=== PATIENT | male | born 1955 | race Caucasian/White ===

== ENCOUNTER 2024-12-04 14:17 | Emergency (ER) | payer MEDICARE ==
--- NOTE | 2024-12-04 14:20 | ERPHSYRPT ---
- History of Present Illness Time Seen by Provider: 12/04/24 14:20 Source: patient, EMS Exam Limitations: no limitations Physician History: This is an overweight 69-year-old diabetic white male patient of Dr. Chao who was transported to our facility by the paramedics secondary to cough, shortness of breath and bodyaches symptoms. His spouse had similar symptoms. His symptoms have been present for 6 days and not improving. Patient does not have chest pain at this time. He does have a history cardiac pacemaker in place. Patient has a history of hypertension, diabetes and hyperlipidemia. Timing/Duration: day(s) (6) Cough Quality/Degree: mild Possible Cause: occasional episodes Modifying Factors: Improves With: activity Associated Symptoms: cough, shortness of breath, No chest pain/soreness Allergies/Adverse Reactions: No Known Drug Allergies Allergy (Verified 12/04/24 14:18) Home Medications: Aspirin 81 mg PO BID 10/08/15 [History] Pravastatin Sodium 40 mg PO HS 10/08/15 [History] carvediloL [Coreg] 25 mg PO BID 10/08/15 [History] Lisinopril 10 mg [Zestril 10 MG] 10 mg PO BID 10/21/15 [History] Sitagliptin Phos/Metformin HCl [Janumet Xr 100-1,000 mg Tablet] 1 each PO EVENING MEAL 10/21/15 [History] Hx Tetanus, Diphtheria Vaccination/Date Given: No Hx Influenza Vaccination/Date Given: No Hx Pneumococcal Vaccination/Date Given: Yes (2014) Travel Risk - International Travel Have you traveled outside of the country in past 3 weeks: No - Emerging Infectious Disease Are you exhibiting symptoms associated with any current EIDs: Yes Symptoms: Cough: New Onset, Shortness of Breath - Review of Systems Constitutional: No Symptoms Eyes: No Symptoms Ears, Nose, & Throat: No Symptoms Respiratory: Cough, Dyspnea on Exertion (RODRIGUEZ) Cardiac: No Symptoms Abdominal/Gastrointestinal: No Symptoms Genitourinary Symptoms: No Symptoms Musculoskeletal: No Symptoms Skin: No Symptoms Neurological: No Symptoms Psychological: No Symptoms Endocrine: No Symptoms Hematologic/Lymphatic: No Symptoms Immunological/Allergic: No Symptoms All Other Systems: Reviewed and Negative - Past Medical History Pertinent Past Medical History: Yes Neurological History: No Pertinent History ENT History: No Pertinent History Cardiac History: Hypertension, Other Respiratory History: No Pertinent History Endocrine Medical History: Diabetes Type II Musculoskeletal History: Fractures GI Medical History: GERD, Hemorrhoids History: No Pertinent History Psycho-Social History: Anxiety Male Reproductive Disorders: No Pertinent History Other Medical History: cardiac pacemaker - Past Surgical History Past Surgical History: Yes Neuro Surgical History: No Pertinent History Cardiac: No Pertinent History Respiratory: No Pertinent History Gastrointestinal: Hernia Repair Genitourinary: No Pertinent History Musculoskeletal: No Pertinent History Male Surgical History: No Pertinent History Other Surgical History: HERNIA REPAIR - Social History Smoking Status: Never smoker Exposure to second hand smoke: No Drug Use: none Patient Lives Alone: No (lives with ) - Nursing Vital Signs Nursing Vital Signs: Initial Vital Signs Temperature 97.0 F 12/04/24 14:21 Pulse Rate 76 12/04/24 14:21 Respiratory Rate 20 12/04/24 14:21 Blood Pressure 86/54 12/04/24 14:21 O2 Sat by Pulse Oximetry 94 L 12/04/24 14:21 Pain Scale Pain Intensity 5 - Physical Exam General Appearance: no apparent distress, alert, anxiety, obese Eye Exam: PERRL/EOMI, eyes nml inspection Ears, Nose, Throat Exam: normal ENT inspection, moist mucous membranes Neck Exam: normal inspection, non-tender, supple, full range of motion Respiratory Exam: normal breath sounds, lungs clear, airway intact, pleural rub, No chest tenderness, No respiratory distress Cardiovascular Exam: regular rate/rhythm, normal heart sounds, normal peripheral pulses Gastrointestinal/Abdomen Exam: soft, normal bowel sounds, No tenderness Rectal Exam: not done Back Exam: normal inspection, normal range of motion, No CVA tenderness, No vertebral tenderness Extremity Exam: normal inspection, normal range of motion, pelvis stable Neurologic Exam: alert, oriented x 3, cooperative, landscape maintenance internship II-XII nml as tested, nml cerebellar function, nml station & gait, sensation nml Skin Exam: normal color, warm, dry Lymphatic Exam: No adenopathy SpO2 Interpretation: borderline oxygenation O2 Delivery: Room Air - Course Nursing assessment & vital signs reviewed: Yes EKG Interpreted by Me: RATE (75), Sinus Rhythm, NORMAL AXIS, NORMAL INTERVALS, NORMAL QRS, Other (No acute ischemia on today's twelve-lead EKG. QTc is 463) Ordered Tests: Active Orders 24 hr Category Date Time Status EKG-ER Only STAT Care 12/04/24 14:24 Active IV Insertion STAT Care 12/04/24 14:24 Active Pulse Oximetry (ED) STAT Care 12/04/24 14:24 Active CHEST 1 VIEW (PORTABLE) Stat Exams 12/04/24 15:45 Taken CHEST WITH CONTRAST [CT] Stat Exams 12/04/24 14:24 Ordered CBC W DIFF Stat Lab 12/04/24 14:58 Completed CMP Stat Lab 12/04/24 14:58 Completed Lactic Acid Stat Lab 12/04/24 14:24 Completed MAGNESIUM Stat Lab 12/04/24 14:58 Completed MONO SCREEN Stat Lab 12/04/24 14:58 Completed NT PRO BNPII Stat Lab 12/04/24 14:58 Completed TROPONIN Q4H Lab 12/04/24 14:58 Completed TROPONIN Q4H Lab 12/04/24 18:30 Ordered TROPONIN Q4H Lab 12/04/24 22:30 Ordered Medication Summary Generic Name Dose Route Start Last Admin Trade Name Freq PRN Reason Stop Dose Admin Sodium Chloride 1,000 mls @ 250 mls/hr 12/04/24 14:30 12/04/24 14:28 Sodium Chloride 0.9% 1000 Ml IV 01/03/25 14:29 250 mls/hr .Q4H CHIDI Administration Lab/Rad Data: Laboratory Result Diagrams 12/04/24 14:58 12/04/24 14:58 Laboratory Results 12/04/24 12/04/24 12/04/24 Range/Units 14:58 14:58 14:58 WBC (4.23-9.07) x10^3/uL RBC (4.63-6.08) x10^6/uL Hgb (13.7-17.5) g/dL Hct (40.1-51.0) % MCV (79.0-92.2) fL MCH (25.7-32.2) pg MCHC (32.3-36.5) g/dL RDW (11.6-14.4) % Plt Count (163-337) x10^3/uL MPV (9.4-12.4) fL Gran % (34.0-67.9) % Immature Gran % (Auto) (0.001-0.429) % Nucleat RBC Rel Count (0.00-0.2) % Eos # (Auto) (0.04-0.54) x10^3/uL Immature Gran # (Auto) (0.001-0.031) x10^3u/L Absolute Lymphs (auto) (1.32-3.57) x10^3/uL Absolute Monos (auto) (0.30-0.82) x10^3/uL Absolute Nucleated RBC (0.00-0.012) x10^3u/L Lymphocytes % (21.8-53.1) % Monocytes % (5.3-12.2) % Eosinophils % (0.8-7.0) % Basophils % (0.2-1.2) % Absolute Granulocytes (1.78-5.38) x10^3/uL Basophils # (0.01-0.08) x10^3/uL Sodium (135-145) mmol/L Potassium (3.5-5.1) mmol/L Chloride (98-107) mmol/L Carbon Dioxide (22-30) mmol/L Anion Gap (5-15) MEQ/L BUN (9-20) mg/dL Creatinine (0.66-1.25) mg/dL Estimated GFR ML/MIN Glucose (74-106) mg/dL Lactic Acid (0.4-2.0) Calcium (8.4-10.2) mg/dL Magnesium (1.6-2.3) mg/dL Total Bilirubin (0.2-1.3) mg/dL AST (17-59) U/L ALT (0-50) U/L Alkaline Phosphatase (38-126) U/L Troponin I 0.016 (0.000-0.033) ng/mL NT-Pro-B Natriuret Pep (<300) pg/mL Serum Total Protein (6.3-8.2) g/dL Albumin (3.5-5.0) g/dL Monoscreen NEGATIVE (NEGATIVE) Influenza Type A Ag POSITIVE A (NEGATIVE) Influenza Type B Ag NEGATIVE (NEGATIVE) RSV (PCR) NEGATIVE (NEGATIVE) SARS-CoV-2 (PCR) NEGATIVE (NEGATIVE) 12/04/24 12/04/24 12/04/24 Range/Units 14:58 14:58 14:24 WBC 7.3 (4.23-9.07) x10^3/uL RBC 4.95 (4.63-6.08) x10^6/uL Hgb 14.4 (13.7-17.5) g/dL Hct 43.6 (40.1-51.0) % MCV 88.1 (79.0-92.2) fL MCH 29.1 (25.7-32.2) pg MCHC 33.0 (32.3-36.5) g/dL RDW 14.1 (11.6-14.4) % Plt Count 136 L (163-337) x10^3/uL MPV 10.3 (9.4-12.4) fL Gran % 64.1 (34.0-67.9) % Immature Gran % (Auto) 0.3 (0.001-0.429) % Nucleat RBC Rel Count 0.0 (0.00-0.2) % Eos # (Auto) 0 L (0.04-0.54) x10^3/uL Immature Gran # (Auto) 0.02 (0.001-0.031) x10^3u/L Absolute Lymphs (auto) 1.48 (1.32-3.57) x10^3/uL Absolute Monos (auto) 1.08 H (0.30-0.82) x10^3/uL Absolute Nucleated RBC 0.00 (0.00-0.012) x10^3u/L Lymphocytes % 20.4 L (21.8-53.1) % Monocytes % 14.9 H (5.3-12.2) % Eosinophils % 0.0 L (0.8-7.0) % Basophils % 0.3 (0.2-1.2) % Absolute Granulocytes 4.65 (1.78-5.38) x10^3/uL Basophils # 0.02 (0.01-0.08) x10^3/uL Sodium 135 (135-145) mmol/L Potassium 4.0 (3.5-5.1) mmol/L Chloride 106 (98-107) mmol/L Carbon Dioxide 17 L (22-30) mmol/L Anion Gap 15.8 H (5-15) MEQ/L BUN 35 H (9-20) mg/dL Creatinine 1.49 H (0.66-1.25) mg/dL Estimated GFR 50.8 ML/MIN Glucose 207 H (74-106) mg/dL Lactic Acid 1.2 (0.4-2.0) Calcium 8.5 (8.4-10.2) mg/dL Magnesium 2.5 H (1.6-2.3) mg/dL Total Bilirubin 0.60 (0.2-1.3) mg/dL AST 50 (17-59) U/L ALT 32 (0-50) U/L Alkaline Phosphatase 64 (38-126) U/L Troponin I (0.000-0.033) ng/mL NT-Pro-B Natriuret Pep 91.4 (<300) pg/mL Serum Total Protein 6.7 (6.3-8.2) g/dL Albumin 4.0 (3.5-5.0) g/dL Monoscreen (NEGATIVE) Influenza Type A Ag (NEGATIVE) Influenza Type B Ag (NEGATIVE) RSV (PCR) (NEGATIVE) SARS-CoV-2 (PCR) (NEGATIVE) - Progress Progress: improved, re-examined Air Movement: good Progress Note: 12/04/24 16:19 My medical decision making and the assignment of moderate complexity to this patient's medical issue today is based on review of the patient's past medical history, review the patient's medication list, reviewed patient drug allergy list, history present illness and physical findings on examination. The workup in this patient includes placement of an intravenous line, chest x-ray, twelve- lead EKG, troponin level, CBC, CMP, viral swabs, monotest. Differential diagnosis includes but is not limited to upper respiratory infection, viral illness, arrhythmia, myocardial infarction I interpreted the patient's laboratory data results. Based on the laboratory data results, the patient does have influenza A infection. I interpreted the patient's preliminary chest x-ray report. It appears that the patient has right perihilar and right lower lobe infiltrate. This might be viral in origin. However, the patient does have multiple medical issues and I think the patient would benefit from antibiotics. We will send a prescription of cefdinir remotely to his pharmacy. Blood Culture(s) Obtained: No Antibiotics given: Yes Counseled pt/family regarding: lab results, diagnosis, need for follow-up, rad results Medical Desision Making - Diagnostic Testing Diagnostic test were ordered, analyzed, and reviewed by me: Yes Radiological Interpretation: Interpreted by me, Teleradiologist Report - Risk of complications The pt has a mod risk of morbidity or mortality based on: Need for prescription drug management - Departure Departure Disposition: Home Clinical Impression: Upper respiratory infection, Influenza A H1N1 infection Condition: Stable Critical Care Time: No Referrals: JARETT CHAO MD [Primary Care Provider] - Follow up/PCP as directed Additional Instructions: Drink plenty of fluids. Take your antibiotics and steroids as prescribed. Monitor your blood sugar closely while taking the steroids. Call your primary care provider on 12/05/2024 to make arrangements for follow-up appointment for further evaluation and management. Prescriptions: Cefdinir 300 mg PO BID #14 cap Prednisone 10 mg [Deltasone 10 mg] 10 mg PO TID #12 tablet
[2024-12-04 14:23] VITALS: TEMP 97
[2024-12-04] MEDS ORDERED: Sodium Chloride 0.9% 1000 ML 1,000 ML ONE (14:26)
[2024-12-04] MEDS: Sodium Chloride 0.9% 1000 ML 1,000 ML IV SCH (14:28)
[2024-12-04 15:01] LABS: Absolute Neutrophil Ct (ANC) 4.65 x10^3/uL (1.78-5.38); BASOPHIL % 0.3 % (0.2-1.2); Basophil (Absolute #) 0.02 x10^3/uL (0.01-0.08); Eosinophil (Absolute #) 0 x10^3/uL (0.04-0.54); Hematocrit 43.6 % (40.1-51.0); Hemoglobin 14.4 g/dL (13.7-17.5); IMMATURE GRAN # 0.02 x10^3u/L (0.001-0.031); IMMATURE GRAN % 0.3 % (0.001-0.429); Lymphocyte (Absolute #) 1.48 x10^3/uL (1.32-3.57); Lymphocytes % 20.4 % (21.8-53.1); Mean Cell Volume 88.1 fL (79.0-92.2); Mean Corpuscular Hemoglobin 29.1 pg (25.7-32.2); Mean Platelet Volume 10.3 fL (9.4-12.4); Monocyte (Absolute #) 1.08 x10^3/uL (0.30-0.82); Monocytes % 14.9 % (5.3-12.2); Neutrophil % 64.1 % (34.0-67.9); Platelet Count 136 x10^3/uL (163-337); Red Blood Count 4.95 x10^6/uL (4.63-6.08); Red Cell Distribution Width 14.1 % (11.6-14.4); White Blood Count 7.3 x10^3/uL (4.23-9.07)
[2024-12-04 15:30] LABS: ANION GAP 15.8 MEQ/L (5-15); BILIRUBIN,TOTAL 0.6 mg/dL (0.2-1.3); Calcium 8.5 mg/dL (8.4-10.2); Creatinine 1 1.49 mg/dL (0.66-1.25); EST GLOMERULAR FILTRATION RATE 50.8 ML/MIN; MAGNESIUM 2.5 mg/dL (1.6-2.3); NT PRO BNPII 91.4 pg/mL (<300); Total Protein 6.7 g/dL (6.3-8.2)
[2024-12-04 15:38] LABS: INFLUENZA B NEGATIVE (NEGATIVE); RESPIRATORY SYNCTIAL VIRUS NEGATIVE (NEGATIVE); SARS-CoV-2 Xpert Express NEGATIVE (NEGATIVE)
[2024-12-04 15:43] LABS: INFLUENZA A POSITIVE (NEGATIVE)
[2024-12-04 16:31] VITALS: BP 83/51; PULSE 74; RESP 11; O2SAT 97
--- NOTE | 2024-12-04 19:32 | XRAY ---
Indication: Short of breath. Influenza A. Comparison: October 21, 2015 Portable chest remains inflated and clear. Heart not enlarged with new left pacemaker. Bony thorax intact. No acute cardiopulmonary abnormalities.
== END 2024-12-04 16:37 | disposition home or self-care (01) ==
LOC: ED 14:17
DX: J10.1 Influenza due to other identified influenza virus with other respiratory manifestations (principal); R06.02 Shortness of breath; R05.1 Acute cough; M79.10 Myalgia, unspecified site; I10 Essential (primary) hypertension; E11.9 Type 2 diabetes mellitus without complications; E78.5 Hyperlipidemia, unspecified; Z79.52 Long term (current) use of systemic steroids; Z79.84 Long term (current) use of oral hypoglycemic drugs; Z79.899 Other long term (current) drug therapy
CPT/HCPCS: 0241U; 36415; 71045; 80053; 83605; 83735; 83880; 84484; 85025; 86308; 93005; 94760; 99285; 99284

== ENCOUNTER 2024-12-12 14:20 | Observation (INO) | payer MEDICARE ==
--- NOTE | 2024-12-12 16:09 | ERPHSYRPT ---
- History of Present Illness Time Seen by Provider: 12/12/24 15:35 Source: patient Exam Limitations: clinical condition Patient Subjective Stated Complaint: C/O cough and fatigue for over a week. Indicates he just can't get over his pneumonia. Triage Nursing Assessment: Patient ambulated back to ER without difficulties. No SOB. Dry, non-productive cough present. Pale. Slight edema BLE, non-pitting. Alert and oriented. Timing/Duration: today Severity: mild Associated Symptoms: weakness Allergies/Adverse Reactions: No Known Drug Allergies Allergy (Verified 12/12/24 15:20) Home Medications: Aspirin 81 mg PO BID 10/08/15 [History] Pravastatin Sodium 40 mg PO HS 10/08/15 [History] carvediloL [Coreg] 25 mg PO BID 10/08/15 [History] Lisinopril 10 mg [Zestril 10 MG] 10 mg PO BID 10/21/15 [History] Sitagliptin Phos/Metformin HCl [Janumet Xr 100-1,000 mg Tablet] 1 each PO EVENING MEAL 10/21/15 [History] Empagliflozin [Jardiance] 25 mg PO DAILY 12/12/24 [History] Sacubitril/Valsartan [Entresto 97 mg-103 mg Tablet] 1 tab PO DAILY 12/12/24 [History] Spironolactone 25 mg [Aldactone 25 MG] 25 mg PO DAILY 12/12/24 [History] Hx Tetanus, Diphtheria Vaccination/Date Given: Yes Hx Influenza Vaccination/Date Given: No Hx Pneumococcal Vaccination/Date Given: Yes (2014) Immunizations Up to Date: Yes Travel Risk - International Travel Have you traveled outside of the country in past 3 weeks: No - Emerging Infectious Disease Are you exhibiting symptoms associated with any current EIDs: Yes Symptoms: Cough: New Onset, Headaches/Body Aches/, Shortness of Breath, Other (Please Comment) Comment: fatigue - Review of Systems Constitutional: No Symptoms Eyes: No Symptoms Ears, Nose, & Throat: No Symptoms Respiratory: No Symptoms Cardiac: No Symptoms Abdominal/Gastrointestinal: No Symptoms Genitourinary Symptoms: No Symptoms Musculoskeletal: No Symptoms Skin: No Symptoms Neurological: No Symptoms Psychological: No Symptoms - Past Medical History Pertinent Past Medical History: Yes Neurological History: No Pertinent History ENT History: No Pertinent History Cardiac History: Hypertension, Other Respiratory History: Pneumonia Endocrine Medical History: Diabetes Type II Musculoskeletal History: Fractures GI Medical History: GERD, Hemorrhoids History: No Pertinent History Psycho-Social History: Anxiety Male Reproductive Disorders: No Pertinent History Other Medical History: cardiac pacemaker - Past Surgical History Past Surgical History: Yes Neuro Surgical History: No Pertinent History Cardiac: Pacemaker Respiratory: No Pertinent History Gastrointestinal: Hernia Repair Genitourinary: No Pertinent History Musculoskeletal: No Pertinent History Male Surgical History: No Pertinent History Other Surgical History: HERNIA REPAIR - Social History Smoking Status: Never smoker Exposure to second hand smoke: No Drug Use: none Patient Lives Alone: No (lives with ) - Social Determinants of Health Will the patient participate in the screening: Declined to provide - Nursing Vital Signs Nursing Vital Signs: Initial Vital Signs Pulse Rate 78 12/12/24 15:19 Respiratory Rate 18 12/12/24 15:19 Blood Pressure 94/59 12/12/24 15:19 O2 Sat by Pulse Oximetry 93 L 12/12/24 15:19 Pain Scale Pain Intensity 0 - Physical Exam General Appearance: no apparent distress Eye Exam: PERRL/EOMI Ears, Nose, Throat Exam: normal ENT inspection Neck Exam: normal inspection Respiratory Exam: normal breath sounds Cardiovascular Exam: regular rate/rhythm Gastrointestinal/Abdomen Exam: soft, normal bowel sounds SpO2: 93 Ordered Tests: Active Orders 24 hr Category Date Time Status CHEST 1 VIEW (PORTABLE) Stat Exams 12/12/24 16:04 Completed CBC W DIFF Stat Lab 12/12/24 16:03 Completed CMP Stat Lab 12/12/24 16:03 Completed MAGNESIUM Stat Lab 12/12/24 16:03 Completed Medication Summary Discontinued Medications Generic Name Dose Route Start Last Admin Trade Name Fabrizio PRN Reason Stop Dose Admin Sodium Chloride 1,000 mls @ 999 mls/hr 12/12/24 16:03 12/12/24 17:26 Sodium Chloride 0.9% 1000 Ml IV 12/12/24 17:03 Infused .Q1H1M STA Infusion Sodium Chloride Confirm 12/12/24 16:23 Sodium Chloride 0.9% 1000 Ml Administered 12/12/24 16:24 Dose 1,000 mls @ ud .ROUTE .STK-MED ONE Azithromycin 500 mg in 250 mls @ 250 mls/hr 12/12/24 17:29 12/12/24 18:26 Zithromax 500 Mg/ 250 Ml Nacl Premix IV 12/12/24 18:28 250 mls/hr STAT STA 250 mls/hr Administration Ceftriaxone Sodium 1 gm in 100 mls @ 200 mls/hr 12/12/24 17:29 12/12/24 18:31 Rocephin 1 Gm / 100 Ml Nacl IV 12/12/24 17:58 Infused STAT ONE Infusion Ceftriaxone Sodium Confirm 12/12/24 17:57 Rocephin 1 Gm / 100 Ml Nacl Administered 12/12/24 17:58 Dose 1 gm in 100 mls @ ud IV .STK-MED ONE Azithromycin Confirm 12/12/24 18:17 Zithromax 500 Mg/ 250 Ml Nacl Premix Administered 12/12/24 18:18 Dose 500 mg in 250 mls @ ud IV .STK-MED ONE Lab/Rad Data: Laboratory Result Diagrams 12/12/24 16:03 12/12/24 16:03 Laboratory Results 12/12/24 12/12/24 Range/Units 16:03 16:03 WBC 10.1 H (4.23-9.07) x10^3/uL RBC 4.94 (4.63-6.08) x10^6/uL Hgb 14.0 (13.7-17.5) g/dL Hct 43.0 (40.1-51.0) % MCV 87.0 (79.0-92.2) fL MCH 28.3 (25.7-32.2) pg MCHC 32.6 (32.3-36.5) g/dL RDW 13.7 (11.6-14.4) % Plt Count 256 (163-337) x10^3/uL MPV 10.1 (9.4-12.4) fL Gran % 73.4 H (34.0-67.9) % Immature Gran % (Auto) 0.9 H (0.001-0.429) % Nucleat RBC Rel Count 0.0 (0.00-0.2) % Eos # (Auto) 0.20 (0.04-0.54) x10^3/uL Immature Gran # (Auto) 0.09 H (0.001-0.031) x10^3u/L Absolute Lymphs (auto) 1.37 (1.32-3.57) x10^3/uL Absolute Monos (auto) 1.01 H (0.30-0.82) x10^3/uL Absolute Nucleated RBC 0.00 (0.00-0.012) x10^3u/L Lymphocytes % 13.5 L (21.8-53.1) % Monocytes % 10.0 (5.3-12.2) % Eosinophils % 2.0 (0.8-7.0) % Basophils % 0.2 (0.2-1.2) % Absolute Granulocytes 7.44 H (1.78-5.38) x10^3/uL Basophils # 0.02 (0.01-0.08) x10^3/uL Sodium 132 L (135-145) mmol/L Potassium 4.6 (3.5-5.1) mmol/L Chloride 101 (98-107) mmol/L Carbon Dioxide 21 L (22-30) mmol/L Anion Gap 14.1 (5-15) MEQ/L BUN 18 (9-20) mg/dL Creatinine 1.19 (0.66-1.25) mg/dL Estimated GFR 66.5 ML/MIN Glucose 273 H (74-106) mg/dL Calcium 8.4 (8.4-10.2) mg/dL Magnesium 3.0 H (1.6-2.3) mg/dL Total Bilirubin 0.90 (0.2-1.3) mg/dL AST 49 (17-59) U/L ALT 50 (0-50) U/L Alkaline Phosphatase 79 (38-126) U/L Serum Total Protein 7.6 (6.3-8.2) g/dL Albumin 4.1 (3.5-5.0) g/dL - Progress Progress Note: Patient was seen and evaluated for generalized weakness labs were obtained he was given IV fluids. 12/12/24 16:07 Patient was updated with the lab results and the chest x-ray results he was informed of the need for admission he is agreeable spoke to the hospitalist he will admit the patient for treatment of dehydration and pneumonia patient received IV fluids and IV antibiotics here in the department and family were updated with the plan and have no further questions 12/12/24 19:26 Medical Desision Making - Discussion of managment Care discussed with:: hospitalist Agreed on:: decision to admit Will see patient: in hospital - Departure Departure Disposition: Observation Clinical Impression: Pneumonia, Dehydration Condition: Stable Critical Care Time: No Referrals: JARETT CHAO MD [Primary Care Provider] - Follow up/PCP as directed
[2024-12-12 16:21] LABS: Absolute Neutrophil Ct (ANC) 7.44 x10^3/uL (1.78-5.38); BASOPHIL % 0.2 % (0.2-1.2); Basophil (Absolute #) 0.02 x10^3/uL (0.01-0.08); IMMATURE GRAN # 0.09 x10^3u/L (0.001-0.031); IMMATURE GRAN % 0.9 % (0.001-0.429); Lymphocyte (Absolute #) 1.37 x10^3/uL (1.32-3.57); Lymphocytes % 13.5 % (21.8-53.1); Mean Corpuscular Hemoglobin 28.3 pg (25.7-32.2); Mean Corpuscular Hgb Concent. 32.6 g/dL (32.3-36.5); Mean Platelet Volume 10.1 fL (9.4-12.4); Monocyte (Absolute #) 1.01 x10^3/uL (0.30-0.82); Neutrophil % 73.4 % (34.0-67.9); Platelet Count 256 x10^3/uL (163-337); Red Blood Count 4.94 x10^6/uL (4.63-6.08); Red Cell Distribution Width 13.7 % (11.6-14.4); White Blood Count 10.1 x10^3/uL (4.23-9.07)
[2024-12-12] MEDS: Sodium Chloride 0.9% 1000 ML 1,000 ML IV STA (16:23)
[2024-12-12] MEDS ORDERED: Sodium Chloride 0.9% 1000 ML 1,000 ML ONE (16:23)
[2024-12-12 16:26] LABS: ALBUMIN 4.1 g/dL (3.5-5.0); ANION GAP 14.1 MEQ/L (5-15); BILIRUBIN,TOTAL 0.9 mg/dL (0.2-1.3); Calcium 8.4 mg/dL (8.4-10.2); Creatinine 1 1.19 mg/dL (0.66-1.25); EST GLOMERULAR FILTRATION RATE 66.5 ML/MIN; Potassium 4.6 mmol/L (3.5-5.1); Total Protein 7.6 g/dL (6.3-8.2)
--- NOTE | 2024-12-12 16:37 | XRAY ---
Indication: Cough. Comparison: December 04, 2024 Portable apical lordotic chest less inflated with now mild right infrahilar infiltrate/atelectasis. Remaining heart and lungs unremarkable again with incidental left AICD. Bony thorax intact again with osteopenia and degenerative changes.
[2024-12-12] MEDS ORDERED: ROCEPHIN 1 GM / 100 ML NaCl 1 GM/100 ML IVPB IV ONE (17:57)
[2024-12-12] MEDS: ROCEPHIN 1 GM / 100 ML NaCl 1 GM/100 ML IVPB IV ONE (17:58)
[2024-12-12] MEDS ORDERED: Zithromax 500 MG/ 250 ML NaCl Premix 500 MG/250 ML IVPB IV ONE (18:17)
[2024-12-12] MEDS: Zithromax 500 MG/ 250 ML NaCl Premix 500 MG/250 ML IVPB IV STA (18:26)
[2024-12-12] MEDS ORDERED: FEVERALL 650 MG PR PRN (20:22)
[2024-12-12] MEDS ORDERED: HUMALOG SQ PRN (20:22)
[2024-12-12] MEDS ORDERED: Zofran 4 MG/2 ML VIAL IV PRN (20:22)
[2024-12-12] MEDS ORDERED: PROVENTIL 2.5 MG/3 ML NEB IH PRN (20:24)
--- NOTE | 2024-12-12 20:43 | PCM.HP ---
History of Present Illness - Chief Complaint Chief Complaint: pne Date: 12/12/24 History of Present Illness: is a 69 year old male with a history of HTN, CHF, and recent hospitalization for influenza/pneumonia, who now presents to the hospital with complaints of cough and fatigue for over a week. He indicates that he has not had significant improvement since his discharge. His cough paroxysms have been significant and resulted in difficulty sleeping. He denies fevers, chills or hemoptysis. In the ED, the patient was noted to have low BP readings and received 1 L NS IV fluids with improvement, as well as IV antibiotics. - Review of Systems Constitutional: Fatigue Eyes: No Symptoms Ears, Nose, & Throat: No Symptoms Respiratory: Cough Cardiac: No Symptoms Abdominal/Gastrointestinal: No Symptoms Genitourinary Symptoms: No Symptoms Musculoskeletal: No Symptoms Skin: No Symptoms Neurological: No Symptoms Psychological: No Symptoms Endocrine: No Symptoms Hematologic/Lymphatic: No Symptoms Immunological/Allergic: No Symptoms All Other Systems: Reviewed and Negative Medications & Allergies Home Medications: Home Medication List Aspirin 81 mg PO BID 10/08/15 [History Confirmed 12/12/24] Pravastatin Sodium 40 mg PO HS 10/08/15 [History Confirmed 12/12/24] carvediloL [Coreg] 25 mg PO BID 10/08/15 [History Confirmed 12/12/24] Lisinopril 10 mg [Zestril 10 MG] 10 mg PO BID 10/21/15 [History Confirmed 12/12/24] Sitagliptin Phos/Metformin HCl [Janumet Xr 100-1,000 mg Tablet] 1 each PO EVENING MEAL 10/21/15 [History Confirmed 12/12/24] Empagliflozin [Jardiance] 25 mg PO DAILY 12/12/24 [History Confirmed 12/12/24] Sacubitril/Valsartan [Entresto 97 mg-103 mg Tablet] 1 tab PO DAILY 12/12/24 [History Confirmed 12/12/24] Spironolactone 25 mg [Aldactone 25 MG] 25 mg PO DAILY 12/12/24 [History Confirmed 12/12/24] Allergies/Adverse Reactions: Allergies Allergy/AdvReac Type Severity Reaction Status Date / Time No Known Drug Allergies Allergy Verified 12/12/24 15:20 - Past Medical History Past Medical History: Yes Neurological History: No Pertinent History ENT History: No Pertinent History Cardiac History: Hypertension, Other Respiratory History: Pneumonia Endocrine Medical History: Diabetes Type II Musculoskelatal History: Fractures GI Medical History: GERD, Hemorrhoids History: No Pertinent History Pyscho-Social History: Anxiety Male Reproductive Disorders: No Pertinent History Comment: cardiac pacemaker/defibillator - Past Surgical History Past Surgical History: Yes Neuro Surgical History: No Pertinent History Cardiac History: Pacemaker Respiratory Surgery: No Pertinent History GI Surgical History: Hernia Repair Genitourinary Surgical Hx: No Pertinent History Musculskeletal Surgical Hx: No Pertinent History Male Surgical History: No Pertinent History Other Surgical History: HERNIA REPAIR Significant Family History: no pertinent family hx Family History: denies family history of pulmonary disorders. - Social History Smoking Status: Never smoker Exposure to second hand smoke: No Alcohol: None Drug Use: none - Social Determinants of Health Will the patient participate in the screening: Yes Do you worry about a steady place to live?: No Do you have any problems with any of the following?: No known problems In the past 12 months,have you had to go without utilities?: No Have you or anyone in your house had to go without enough: No Transportation Issues: No Has anyone in your support network made you feel unsafe?: No Does the patient want assistance with any of the above?: No - Physical Exam Vital Signs: Vital Signs - 24 hr Temp Pulse Resp BP BP Pulse Ox 12/12/24 19:58 97.3 F 80 18 108/64 96 12/12/24 19:28 93 L 12/12/24 18:00 80 21 101/64 94 L 12/12/24 17:30 80 18 100/66 95 12/12/24 17:00 77 16 92/51 96 12/12/24 16:30 76 20 87/45 95 12/12/24 16:00 79 17 87/58 94 L 12/12/24 15:30 79 13 87/51 93 L 12/12/24 15:20 98 F 82 17 94/59 98 12/12/24 15:19 78 18 94/59 93 L General Appearance: no apparent distress, alert Neurologic Exam: alert, oriented x 3, cooperative, picc nurse II-XII nml as tested, normal mood/affect, nml cerebellar function Eye Exam: PERRL/EOMI, eyes nml inspection Neck Exam: normal inspection, non-tender, supple, full range of motion Respiratory Exam: airway intact, diminished breath sounds Cardiovascular Exam: regular rate/rhythm, normal heart sounds Gastrointestinal/Abdomen Exam: soft, normal bowel sounds Back Exam: normal range of motion Extremity Exam: normal inspection, normal range of motion Skin Exam: normal color Results - Labs Lab/Micro Results: Lab Results-Last 24 Hours 12/12/24 12/12/24 Range/Units 16:03 16:03 WBC 10.1 H (4.23-9.07) x10^3/uL RBC 4.94 (4.63-6.08) x10^6/uL Hgb 14.0 (13.7-17.5) g/dL Hct 43.0 (40.1-51.0) % MCV 87.0 (79.0-92.2) fL MCH 28.3 (25.7-32.2) pg MCHC 32.6 (32.3-36.5) g/dL RDW 13.7 (11.6-14.4) % Plt Count 256 (163-337) x10^3/uL MPV 10.1 (9.4-12.4) fL Gran % 73.4 H (34.0-67.9) % Immature Gran % (Auto) 0.9 H (0.001-0.429) % Nucleat RBC Rel Count 0.0 (0.00-0.2) % Eos # (Auto) 0.20 (0.04-0.54) x10^3/uL Immature Gran # (Auto) 0.09 H (0.001-0.031) x10^3u/L Absolute Lymphs (auto) 1.37 (1.32-3.57) x10^3/uL Absolute Monos (auto) 1.01 H (0.30-0.82) x10^3/uL Absolute Nucleated RBC 0.00 (0.00-0.012) x10^3u/L Lymphocytes % 13.5 L (21.8-53.1) % Monocytes % 10.0 (5.3-12.2) % Eosinophils % 2.0 (0.8-7.0) % Basophils % 0.2 (0.2-1.2) % Absolute Granulocytes 7.44 H (1.78-5.38) x10^3/uL Basophils # 0.02 (0.01-0.08) x10^3/uL Sodium 132 L (135-145) mmol/L Potassium 4.6 (3.5-5.1) mmol/L Chloride 101 (98-107) mmol/L Carbon Dioxide 21 L (22-30) mmol/L Anion Gap 14.1 (5-15) MEQ/L BUN 18 (9-20) mg/dL Creatinine 1.19 (0.66-1.25) mg/dL Estimated GFR 66.5 ML/MIN Glucose 273 H (74-106) mg/dL Calcium 8.4 (8.4-10.2) mg/dL Magnesium 3.0 H (1.6-2.3) mg/dL Total Bilirubin 0.90 (0.2-1.3) mg/dL AST 49 (17-59) U/L ALT 50 (0-50) U/L Alkaline Phosphatase 79 (38-126) U/L Serum Total Protein 7.6 (6.3-8.2) g/dL Albumin 4.1 (3.5-5.0) g/dL - Radiology Impressions Radiology Exams & Impressions: Radiology Procedures Category Date Time Status CHEST 1 VIEW (PORTABLE) Stat Exams 12/12/24 16:04 Completed Assessment/Plan (1) Pneumonia Current Visit: Yes Status: Acute Assessment & Plan: Failed complete recovery. Will escalate to IV antibiotics. Mucinex for cough. Monitor clinical response. Code(s): J18.9 - PNEUMONIA, UNSPECIFIED ORGANISM (2) Leukocytosis Current Visit: Yes Status: Acute Assessment & Plan: Mild. Trend WBC. On antibiotics. Code(s): D72.829 - ELEVATED WHITE BLOOD CELL COUNT, UNSPECIFIED (3) CHF (congestive heart failure) Current Visit: No Status: Acute Assessment & Plan: Continue current regimen. Received 1 L NS in ED. No peripheral edema or obvious volume overload. Hold parameters verbally requested for home BP regimen. Monitor volume status. Code(s): I50.9 - HEART FAILURE, UNSPECIFIED (4) Dehydration Current Visit: Yes Status: Acute Assessment & Plan: Received 1 L NS in ED. Will hold off on maintenance IV fluids due to risk of volume overload with history of CHF. Code(s): E86.0 - DEHYDRATION Telemedicine Encounter - Telemedicine Encounter Telemedicine Encounter: "The entirety of this encounter was performed via Telemedicine" This visit was performed using real-time audio and video connection between my location and thepatients locationwith the assistance of a surrogateat the patients location. Written or verbal consent was obtained from the patient/guardian to perform this visit usingsynchronoustelemedicine technology. Any patient questions regarding the telemedicine interaction were answered.
[2024-12-12] MEDS ORDERED: NON-FORMULARY ITEM (Aspirin [Aspirin] 81 MG Tablet) PO SCH (22:00)
[2024-12-12] MEDS ORDERED: ECOTRIN 81 MG PO ONE (23:51)
[2024-12-12] MEDS: HEPARIN 5000 UNITS/0.5 ML (HIGH RISK MED) SQ SCH (23:54)
[2024-12-12] MEDS: Zestril 10 MG PO SCH (23:54)
[2024-12-12] MEDS: Mucinex 600MG ER Tabs PO SCH (23:54)
[2024-12-13] MEDS: NON-FORMULARY ITEM (Carvedilol [Coreg] 25 MG Tablet) PO SCH (00:12)
[2024-12-13] MEDS: NON-FORMULARY ITEM (Pravastatin Sodium [Pravastatin Sodium] 40 MG Tablet) PO SCH (00:13)
[2024-12-13] MEDS: ECOTRIN 81 MG PO SCH (01:52)
[2024-12-13 04:49] LABS: Absolute Neutrophil Ct (ANC) 5.11 x10^3/uL (1.78-5.38); BASOPHIL % 0.2 % (0.2-1.2); Basophil (Absolute #) 0.02 x10^3/uL (0.01-0.08); Eosinophil (Absolute #) 0.24 x10^3/uL (0.04-0.54); Hematocrit 39.7 % (40.1-51.0); IMMATURE GRAN # 0.07 x10^3u/L (0.001-0.031); IMMATURE GRAN % 0.9 % (0.001-0.429); Lymphocyte (Absolute #) 1.63 x10^3/uL (1.32-3.57); Lymphocytes % 20.2 % (21.8-53.1); Mean Cell Volume 87.3 fL (79.0-92.2); Mean Corpuscular Hemoglobin 28.6 pg (25.7-32.2); Mean Corpuscular Hgb Concent. 32.7 g/dL (32.3-36.5); Mean Platelet Volume 9.8 fL (9.4-12.4); Monocytes % 12.4 % (5.3-12.2); Neutrophil % 63.3 % (34.0-67.9); Platelet Count 262 x10^3/uL (163-337); Red Blood Count 4.55 x10^6/uL (4.63-6.08); Red Cell Distribution Width 13.8 % (11.6-14.4); White Blood Count 8.1 x10^3/uL (4.23-9.07)
[2024-12-13 05:22] LABS: ANION GAP 12.3 MEQ/L (5-15); Calcium 8.2 mg/dL (8.4-10.2); Creatinine 1 0.79 mg/dL (0.66-1.25); EST GLOMERULAR FILTRATION RATE 96.8 ML/MIN; Potassium 4.5 mmol/L (3.5-5.1)
[2024-12-13 07:42] VITALS: O2SAT 93
[2024-12-13 07:53] VITALS: BP 112/65; PULSE 77; RESP 17; TEMP 97.4
[2024-12-13] MEDS: ENTRESTO 49 MG-51 MG TABLET PO SCH (09:25)
[2024-12-13] MEDS: Acidophilus TABLET PO SCH (09:26)
[2024-12-13] MEDS: Aldactone 25 MG PO SCH (09:27)
[2024-12-13] MEDS: ROCEPHIN 1 GM / 100 ML NaCl 1 GM/100 ML IVPB IV SCH (09:28)
[2024-12-13] MEDS: COREG 12.5 MG PO SCH (09:28)
--- NOTE | 2024-12-13 09:28 | PCM.DS ---
Discharge Summary Date of Admission: 12/12/24 19:36 Date of Discharge: 12/13/24 Admitting Physician: JAVON EVANS MD Primary Care Provider: JARETT CHAO Allergies Allergies No Known Drug Allergies Allergy (Verified 12/12/24 15:20) Hospital Summary - Hospital Course Hospital Course: Mr. Bland, a 69-year-old male with a history of hypertension (HTN), congestive heart failure (CHF), and a recent hospitalization for influenza and pneumonia, presents to the hospital with persistent cough and fatigue for over a week. He reported no significant improvement since his discharge, and his severe coughing paroxysms have been affecting his ability to sleep. He denies experiencing fever, chills, or hemoptysis. On presentation, the patient had low blood pressure, which improved after receiving 1 L of normal saline (NS) IV fluids. Additionally, he was given IV antibiotics. His oxygen saturation was noted to be 92% on room air. Despite these symptoms, his lab results were non-concerning, no electrolyte imbalances, or renal dysfunction. Over the course of his hospitalization, he began to feel better and now expresses a desire to be discharged. The plan is to send him home with oral antibiotics, cough medication, and an inhaler at his request. - Vitals & Intake/Output Vital Signs: Vital Signs Temperature 97.4 F 12/13/24 07:52 Pulse Rate 77 12/13/24 07:52 Respiratory Rate 17 12/13/24 07:52 Blood Pressure 112/65 12/13/24 07:52 O2 Sat by Pulse Oximetry 93 L 12/13/24 07:52 Intake & Output: Intake & Output 12/10/24 12/11/24 12/12/24 12/13/24 11:59 11:59 11:59 11:59 Intake Total 720 Balance 720 Weight 102.4 kg - Lab Result Diagrams: 12/13/24 04:48 12/13/24 04:48 Lab Results-Last 24 Hrs: Lab Results-Last 24 Hours 12/12/24 12/12/24 12/13/24 Range/Units 16:03 16:03 04:48 WBC 10.1 H 8.1 (4.23-9.07) x10^3/uL RBC 4.94 4.55 L (4.63-6.08) x10^6/uL Hgb 14.0 13.0 L (13.7-17.5) g/dL Hct 43.0 39.7 L (40.1-51.0) % MCV 87.0 87.3 (79.0-92.2) fL MCH 28.3 28.6 (25.7-32.2) pg MCHC 32.6 32.7 (32.3-36.5) g/dL RDW 13.7 13.8 (11.6-14.4) % Plt Count 256 262 (163-337) x10^3/uL MPV 10.1 9.8 (9.4-12.4) fL Gran % 73.4 H 63.3 (34.0-67.9) % Immature Gran % (Auto) 0.9 H 0.9 H (0.001-0.429) % Nucleat RBC Rel Count 0.0 0.0 (0.00-0.2) % Eos # (Auto) 0.20 0.24 (0.04-0.54) x10^3/uL Immature Gran # (Auto) 0.09 H 0.07 H (0.001-0.031) x10^3u/L Absolute Lymphs (auto) 1.37 1.63 (1.32-3.57) x10^3/uL Absolute Monos (auto) 1.01 H 1.00 H (0.30-0.82) x10^3/uL Absolute Nucleated RBC 0.00 0.00 (0.00-0.012) x10^3u/L Lymphocytes % 13.5 L 20.2 L (21.8-53.1) % Monocytes % 10.0 12.4 H (5.3-12.2) % Eosinophils % 2.0 3.0 (0.8-7.0) % Basophils % 0.2 0.2 (0.2-1.2) % Absolute Granulocytes 7.44 H 5.11 (1.78-5.38) x10^3/uL Basophils # 0.02 0.02 (0.01-0.08) x10^3/uL Sodium 132 L (135-145) mmol/L Potassium 4.6 (3.5-5.1) mmol/L Chloride 101 (98-107) mmol/L Carbon Dioxide 21 L (22-30) mmol/L Anion Gap 14.1 (5-15) MEQ/L BUN 18 (9-20) mg/dL Creatinine 1.19 (0.66-1.25) mg/dL Estimated GFR 66.5 ML/MIN Glucose 273 H (74-106) mg/dL POC Glucometer (74 to 106) mg/dL Calcium 8.4 (8.4-10.2) mg/dL Magnesium 3.0 H (1.6-2.3) mg/dL Total Bilirubin 0.90 (0.2-1.3) mg/dL AST 49 (17-59) U/L ALT 50 (0-50) U/L Alkaline Phosphatase 79 (38-126) U/L Serum Total Protein 7.6 (6.3-8.2) g/dL Albumin 4.1 (3.5-5.0) g/dL 12/13/24 12/13/24 12/13/24 Range/Units 04:48 04:48 05:18 WBC (4.23-9.07) x10^3/uL RBC (4.63-6.08) x10^6/uL Hgb (13.7-17.5) g/dL Hct (40.1-51.0) % MCV (79.0-92.2) fL MCH (25.7-32.2) pg MCHC (32.3-36.5) g/dL RDW (11.6-14.4) % Plt Count (163-337) x10^3/uL MPV (9.4-12.4) fL Gran % (34.0-67.9) % Immature Gran % (Auto) (0.001-0.429) % Nucleat RBC Rel Count (0.00-0.2) % Eos # (Auto) (0.04-0.54) x10^3/uL Immature Gran # (Auto) (0.001-0.031) x10^3u/L Absolute Lymphs (auto) (1.32-3.57) x10^3/uL Absolute Monos (auto) (0.30-0.82) x10^3/uL Absolute Nucleated RBC (0.00-0.012) x10^3u/L Lymphocytes % (21.8-53.1) % Monocytes % (5.3-12.2) % Eosinophils % (0.8-7.0) % Basophils % (0.2-1.2) % Absolute Granulocytes (1.78-5.38) x10^3/uL Basophils # (0.01-0.08) x10^3/uL Sodium 134 L (135-145) mmol/L Potassium 4.5 (3.5-5.1) mmol/L Chloride 103 (98-107) mmol/L Carbon Dioxide 23 (22-30) mmol/L Anion Gap 12.3 (5-15) MEQ/L BUN 15 (9-20) mg/dL Creatinine 0.79 (0.66-1.25) mg/dL Estimated GFR 96.8 ML/MIN Glucose 126 H (74-106) mg/dL POC Glucometer 138 H (74 to 106) mg/dL Calcium 8.2 L (8.4-10.2) mg/dL Magnesium 2.7 H (1.6-2.3) mg/dL Total Bilirubin (0.2-1.3) mg/dL AST (17-59) U/L ALT (0-50) U/L Alkaline Phosphatase (38-126) U/L Serum Total Protein (6.3-8.2) g/dL Albumin (3.5-5.0) g/dL 12/13/24 Range/Units 07:31 WBC (4.23-9.07) x10^3/uL RBC (4.63-6.08) x10^6/uL Hgb (13.7-17.5) g/dL Hct (40.1-51.0) % MCV (79.0-92.2) fL MCH (25.7-32.2) pg MCHC (32.3-36.5) g/dL RDW (11.6-14.4) % Plt Count (163-337) x10^3/uL MPV (9.4-12.4) fL Gran % (34.0-67.9) % Immature Gran % (Auto) (0.001-0.429) % Nucleat RBC Rel Count (0.00-0.2) % Eos # (Auto) (0.04-0.54) x10^3/uL Immature Gran # (Auto) (0.001-0.031) x10^3u/L Absolute Lymphs (auto) (1.32-3.57) x10^3/uL Absolute Monos (auto) (0.30-0.82) x10^3/uL Absolute Nucleated RBC (0.00-0.012) x10^3u/L Lymphocytes % (21.8-53.1) % Monocytes % (5.3-12.2) % Eosinophils % (0.8-7.0) % Basophils % (0.2-1.2) % Absolute Granulocytes (1.78-5.38) x10^3/uL Basophils # (0.01-0.08) x10^3/uL Sodium (135-145) mmol/L Potassium (3.5-5.1) mmol/L Chloride (98-107) mmol/L Carbon Dioxide (22-30) mmol/L Anion Gap (5-15) MEQ/L BUN (9-20) mg/dL Creatinine (0.66-1.25) mg/dL Estimated GFR ML/MIN Glucose (74-106) mg/dL POC Glucometer 180 H (74 to 106) mg/dL Calcium (8.4-10.2) mg/dL Magnesium (1.6-2.3) mg/dL Total Bilirubin (0.2-1.3) mg/dL AST (17-59) U/L ALT (0-50) U/L Alkaline Phosphatase (38-126) U/L Serum Total Protein (6.3-8.2) g/dL Albumin (3.5-5.0) g/dL Micro Results-Entire Visit: Accuchecks Date 12/13/24 Time 07:43 - Radiology Exams Ordered Rad Exams-Entire Visit: Radiology Procedures Category Date Time Status CHEST 1 VIEW (PORTABLE) Stat Exams 12/12/24 16:04 Completed - Procedures and Test Procedures and Tests throughout Hospitalization: Therapy Orders & Screens 12/12/24 20:25 PT Eval & Treat ( Order) ONCE Reason for Eval:: debility Diagnosis: pne 12/12/24 22:30 Respiratory Therapy Assessment DAILY Comment: Diagnosis: pne Discharge Exam General Appearance: no apparent distress, alert Neurologic Exam: alert, oriented x 3, cooperative, normal mood/affect, nml cerebellar function, sensation nml, No motor deficits Eye Exam: PERRL, EOMI, eyes nml inspection Ears, Nose, Throat Exam: normal ENT inspection, pharynx normal, moist mucous membranes Neck Exam: normal inspection, non-tender, supple, full range of motion Respiratory Exam: normal breath sounds, lungs clear, No respiratory distress Cardiovascular Exam: regular rate/rhythm, normal heart sounds Gastrointestinal/Abdomen Exam: soft, No tenderness, No mass Male Genitalia Exam: deferred Rectal Exam: deferred Back Exam: normal inspection, normal range of motion, No CVA tenderness, No vertebral tenderness Extremity Exam: normal inspection, normal range of motion Skin Exam: normal color, warm, dry Final Diagnosis/Problem List - Final Discharge Diagnosis/Problem (1) Pneumonia Current Visit: Yes Status: Acute Assessment & Plan: - CBC, CMP reviewed - RA 92% - CXR reviewed - IV antibiotics - Mucinex for cough. - Proventil Code(s): J18.9 - PNEUMONIA, UNSPECIFIED ORGANISM (2) Dehydration Current Visit: Yes Status: Resolved Assessment & Plan: - resolved - 1LNS in ER Code(s): E86.0 - DEHYDRATION (3) Leukocytosis Current Visit: Yes Status: Resolved Assessment & Plan: - resolved Code(s): D72.829 - ELEVATED WHITE BLOOD CELL COUNT, UNSPECIFIED (4) CHF (congestive heart failure) Current Visit: No Status: Chronic Assessment & Plan: - not in acute exacerbation - continue home meds - Echo 10/09/15: INDICATION: Congestive heart failure. IMPRESSION: 1) MILD LEFT VENTRICULAR HYPOKINESIA. EJECTION FRACTION OF AROUND 40%. 2) MILD MITRAL REGURGITATION. 3) TRACE TRICUSPID REGURGITATION. RIGHT VENTRICULAR SYSTOLIC PRESSURE OF 27 MM OF MERCURY. 4) TRACE PULMONIC INSUFFICIENCY. 5) MILD TO MODERATELY DILATED LEFT VENTRICLE. 6) LEFT ATRIAL ENLARGEMENT. The left ventricle is visualized and demonstrated global type of hypokinesia. Ejection fraction around 40%. There is mild left ventricular hypertrophy. The mitral valve is seen and this opens adequately. There is a low flow characteristic. There was some mild mitral regurgitation. Left atrium is enlarged. The aortic valve opens adequately. Right side chambers are normal. There is trace tricuspid regurgitation. Right ventricular systolic pressure of 27 mm of Mercury. There is also trace pulmonic insufficiency. - F/U with cardiology OP Code(s): I50.9 - HEART FAILURE, UNSPECIFIED (5) Obesity (BMI 30-39.9) Current Visit: Yes Status: Chronic Assessment & Plan: - advised diet and exercise control Code(s): E66.9 - OBESITY, UNSPECIFIED - Discharge Discharge Date: 12/13/24 Disposition: Home, Self-Care Condition: Stable Prescriptions: [place]ifenesin 600 mg ER [Mucinex 600MG ER Tabs] 600 mg PO BID 7 Days #14 tablet Benzonatate 100 mg PO TIDPRN PRN 10 Days #30 cap PRN Reason: Cough cefuroxime axetiL [Cefuroxime] 500 mg PO BID 7 Days #14 tablet Azithromycin 250 mg [Zithromax 250 MG TABLET] 250 mg PO ZPACK 5 Days #6 tablet Continue Pravastatin Sodium 40 mg PO HS carvediloL [Coreg] 25 mg PO BID Aspirin 81 mg PO BID Lisinopril 10 mg [Zestril 10 MG] 10 mg PO BID Sitagliptin Phos/Metformin HCl [Janumet Xr 100-1,000 mg Tablet] 1 each PO EVENING MEAL Spironolactone 25 mg [Aldactone 25 MG] 25 mg PO DAILY Sacubitril/Valsartan [Entresto 97 mg-103 mg Tablet] 1 tab PO DAILY Empagliflozin [Jardiance] 25 mg PO DAILY Follow up with: JARETT CHAO MD [Primary Care Provider] -
[2024-12-13] MEDS: JARDIANCE PO SCH (09:31)
[2024-12-13] MEDS ORDERED: Zithromax 500 MG/ 250 ML NaCl Premix 500 MG/250 ML IVPB IV SCH (10:00)
[2024-12-13] MEDS ORDERED: NON-FORMULARY ITEM (Sacubitril/Valsartan [Entresto 97 Mg-103 Mg Tablet] 1 EACH Tablet) PO SCH (10:00)
[2024-12-13] MEDS ORDERED: SITAGLIPTIN PHOS PO SCH (18:00)
[2024-12-13] MEDS ORDERED: Glucophage XR 500 MG PO SCH (18:00)
[2024-12-13] MEDS ORDERED: Januvia 50 MG PO SCH (18:00)
[2024-12-13] MEDS ORDERED: [UNRECOGNIZED DRUG - OTHER] PO SCH (18:00)
[2024-12-13] MEDS ORDERED: METFORMIN HCL PO SCH (18:00)
[2024-12-13] MEDS ORDERED: ZOCOR 20MG PO SCH (22:00)
== END 2024-12-13 10:28 | disposition home or self-care (01) ==
LOC: ED 14:20 → MED SURG 19:36
PROVIDERS: ADMIT Internal Medicine; ATTEND Internal Medicine
DX: J18.9 Pneumonia, unspecified organism (principal); E86.0 Dehydration; D72.829 Elevated white blood cell count, unspecified; I11.0 Hypertensive heart disease with heart failure; I50.9 Heart failure, unspecified; E66.9 Obesity, unspecified; Z79.899 Other long term (current) drug therapy; E11.9 Type 2 diabetes mellitus without complications
CPT/HCPCS: 36415; 71045; 80048; 80053; 82947; 83735; 85025; 94760; 96365; 96374; 99285; G0378; Q3014; 99283; J0456; J0696; J1644; A9270-GY